=== PATIENT | male | born 1965 | race Caucasian/White ===

== ENCOUNTER → 2019-04-17 | Outpatient (CLI) | payer OTHER ==
--- NOTE | 2019-04-17 11:40 | CT ---
Procedure: CT LUNG SCREENING Exam Date: 04/17/2019. Ordering Provider: Don Schaeffer Clinical Indication: Z87.891-PERSONAL HX OF TOBACCO USE. Current cigarette smoker. 15+ pack years. This patient meets eligibility criteria for low-dose CT lung cancer screening. Comparison: CT scan of the thorax and lungs with IV contrast 03/24/2016. Technique: Using a multislice scanner, sequential helical axial imaging was obtained in the thorax, 2.5 mm thickness, 2.5 mm separation, from the level of the thoracic inlet through the lung bases without IV contrast. A low dose protocol was utilized for BMI less than 30: BMI: 23. CTDI: 1.76 mGy. 120. kVp. 45 mA. DLP 70.07 mGy-centimeters. 2D sagittal and coronal reconstructed images, 6.0 mm thickness, were obtained. This exam was performed according to our departmental dose optimization program which includes use of automated exposure control, adjustment of the mA and/or kV according to patient size and/or use of iterative reconstruction technique. Nodule measurements under 10 mm are given as mean value of 3 axes diameters. FINDINGS: Lungs and large airways: Predominantly calcified nodule in the superior lateral subpleural lingula measuring approximately 1.2 x 0.7 cm on image series , stable since the prior study. Minimal focal thickening in the left major fissure. Pleural parenchymal scarring in the right base more than left also inferior lingula. No abnormal nodules or masses. No focal infiltrates. Smaller calcifications in the bilateral lung bases more on the left.. Pleura and space: Small pleural bleb medial right upper lobe. No effusion or pneumothorax. Mediastinum and an: evaluation limited by low dose technique and lack of IV contrast. No enlarged lymph nodes or dominant soft tissue masses. Heart and great vessels: Unremarkable. Chest wall, lower neck, axillae: Evaluation also limited by same factors as described above. Lymph nodes are not enlarged. No dominant soft tissue masses. Upper abdomen: Evaluation limited by low-dose technique. 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 No peritoneal fluid or free air. Osseous structures: Evaluation limited by low dose MIP technique. Bilateral glenohumeral arthrosis. Bilateral sternoclavicular arthrosis. Occasional costovertebral arthrosis. Spondylosis in the mid thoracic spine. No lytic or blastic lesions. IMPRESSION: 1. Stable calcified nodule in the superior lingula, since March 2016. Bilateral smaller calcific densities in the bases. Small pleural bleb right upper lobe. No abnormal nodules or masses. No focal infiltrates.. Please see below for Lung RADS category and FOLLOW-UP.* *Lung RADS category Category 1 - No nodule or definitely benign nodules (probability of malignancy less than 1%). Follow-up: Continue annual screening with Low Dose Chest CT in 12 months. Electronically signed by: Be Tran MD 04/17/2019 11:38 AM CDT
== END ==
LOC: CT 10:00
PROVIDERS: ATTEND Family Medicine
DX: Z87.891 Personal history of nicotine dependence (principal); R91.1 Solitary pulmonary nodule